=== PATIENT | male | born 1960 | race Asian ===

== ENCOUNTER 2025-05-28 11:43 | Outpatient (CLI) | payer OTHER, SELFPAY ==
--- NOTE | ~2025-05-28 | XR_ITS ---
XR hand LT min 3V 05/28/2025 12:01 Indication: Left hand pain Procedure: 3 views left hand Comparison: No prior studies for comparison. Findings: There is mild-moderate polyarticular osteoarthritis of the left wrist and hand most severe at the first carpal metacarpal and metacarpal phalangeal joints. No soft tissue abnormality. No foreign bodies. Impression: 1: Mild-moderate polyarticular osteoarthritis. Reviewed, dictated and finalized at location O. Impression: 1: Mild-moderate polyarticular osteoarthritis.
--- NOTE | ~2025-05-28 | XR_ITS ---
XR hand RT min 3V 05/28/2025 12:01 Indication: Right hand pain. Arthritis. Procedure: 3 views right hand Comparison: No prior studies for comparison. Findings: There is moderate-severe polyarticular osteoarthritis most advanced at the third MCP joint. No erosive changes. No fracture, subluxation or dislocation. Osteopenia. No focal soft tissue abnormality. Impression: 1: Moderate-severe polyarticular osteoarthritis. Reviewed, dictated and finalized at location O. Impression: 1: Moderate-severe polyarticular osteoarthritis.
--- OUTSIDE RECORDS SUMMARY | 2025-05-28 13:23 | XMS_ITS | Clinical Summary ---
Author Organization [facility] Address [address] [place] [address] [facility] [place] [address] Care Team Providers Care Kaiako Kura [place] Maori Name Role Phone Unavailable Primary Care Provider Unavailabl e Social History Tobacco Use Types Packs/Day Years Used Date Smoking Tobacco: Never Assessed Sex and Gender Information Value Date Recorded Sex Assigned at Not on file Legal Sex Male 11:16 AM [employer] Gender Identity Not on file Sexual Orientation Not on file Plan of Treatment Health Maintenance Due Date Last Done Comments DTAP/TDAP/TD VACCINES (1 - Tdap) 1977 COLORECTAL SCREENING 2003 Colorectal Cancer Screening 2003 FIT-DNA Q 3 years 2003 FIT/FOBT Q 1 year 2003 Flex Sig/CT Colonography Q 5 years 2003 PNEUMOCOCCAL VACCINE 50+ YEARS (1 of 1 - PCV) 02/24/20 08 ZOSTER VACCINE (1 of 2) 02/24/2008 INFLUENZA VACCINE (#1) 2025 RSV VACCINE (60+ or ) (1 - 1-dose 75+ series) 2033
--- OUTSIDE RECORDS SUMMARY | 2025-05-28 13:24 | XMS_ITS | Continuity of Care Document ---
Author Name Toby Perkins Address [address] [place] [address] Organization Unknown Address [address] [place] [address] Medications No known medications Problems No known problems
--- OUTSIDE RECORDS SUMMARY | 2025-05-28 13:25 | XMS_ITS | Continuity of Care Document ---
Author Name Toby Perkins Address [address] [place], [place] [id number] [place] [address] Organization Unknown Address [address] [place] [address] Medications No known medications Problems No known problems
== END 2025-05-28 11:44 | disposition home or self-care (01) ==
PROVIDERS: PCP Family Medicine; Visit Provider Plastic Surgery
DX: M19.042 Primary osteoarthritis, left hand (principal); M19.041 Primary osteoarthritis, right hand
CPT/HCPCS: 73130